=== PATIENT | female | born 1995 | race Caucasian/White ===

== ENCOUNTER 2017-12-02 12:28 | Emergency (ER) | payer OTHER ==
[~2017-12-02] VITALS: Ht 152.4 cm; Wt 37.0 kg
[2017-12-02 12:34] VITALS: BP 124/99
[2017-12-02] MEDS ORDERED: rabies immune globulin/PF 150 unit/ml inj IMVAC STA (13:01)
[2017-12-02] MEDS ORDERED: LIDOcaine/epinephrine TOPICAL 5 ML BTL TOP ONE (13:05)
[2017-12-02] MEDS ORDERED: rabies vaccine (PCEC)/PF 2.5 unit kit IMVAC ONE (13:05)
== END 2017-12-02 13:59 | disposition home or self-care (01) ==
LOC: ER 12:29
DX: S61.252A Open bite of right middle finger without damage to nail, initial encounter (principal); W55.01XA Bitten by cat, initial encounter; Y93.89 Activity, other specified; Y92.89 Other specified places as the place of occurrence of the external cause; Y99.9 Unspecified external cause status
CPT/HCPCS: 90375; 90471; 90675; 96372; 99283; 99284

== ENCOUNTER 2017-12-05 10:58 | Emergency (ER) | payer OTHER ==
[~2017-12-05] VITALS: Ht 152.4 cm; Wt 36.5 kg
[2017-12-05] MEDS ORDERED: rabies vaccine (PCEC)/PF 2.5 unit kit IMVAC ONE (17:15)
[2017-12-05 18:15] VITALS: BP 130/73
== END 2017-12-05 18:17 | disposition home or self-care (01) ==
LOC: ER 10:58
DX: Z23 Encounter for immunization (principal)
CPT/HCPCS: 90471; 90675; 99283

== ENCOUNTER 2017-12-09 17:59 | Emergency (ER) | payer OTHER ==
[~2017-12-09] VITALS: Ht 152.4 cm; Wt 40.9 kg
[2017-12-09 18:23] VITALS: BP 124/78
[2017-12-09] MEDS ORDERED: rabies vaccine (PCEC)/PF 2.5 unit kit IMVAC ONE (18:30)
== END 2017-12-09 19:20 | disposition home or self-care (01) ==
LOC: ER 18:00
DX: Z23 Encounter for immunization (principal)
CPT/HCPCS: 90471; 90675; 99283

== ENCOUNTER 2017-12-16 21:02 | Emergency (ER) | payer OTHER ==
[~2017-12-16] VITALS: Ht 152.4 cm; Wt 40.9 kg
[2017-12-16] MEDS ORDERED: diphenhydrAMINE 25mg capsule PO ONE (21:30)
[2017-12-16] MEDS ORDERED: rabies vaccine (PCEC)/PF 2.5 unit kit IMVAC ONE (21:30)
[2017-12-16 22:06] VITALS: BP 136/76
== END 2017-12-16 22:15 | disposition home or self-care (01) ==
LOC: ER 21:03
DX: Z23 Encounter for immunization (principal)
CPT/HCPCS: 90471; 90675; 99283; Q0163

== ENCOUNTER → 2017-12-23 | Emergency (ER) | payer OTHER ==
[~2017-12-23] VITALS: Ht 152.4 cm; Wt 40.9 kg
[~2017-12-23] MED LIST: rabies vaccine (PCEC)/PF 2.5 unit kit IMVAC ONE
[2017-12-23 18:05] VITALS: BP 125/76
== END | disposition home or self-care (01) ==
LOC: ER 17:58
DX: Z23 Encounter for immunization (principal)
CPT/HCPCS: 99281